=== PATIENT | female | born 1945 | race Caucasian/White ===

== ENCOUNTER 2021-10-06 06:20 | Day surgery (SDC) | payer OTHER, SELFPAY ==
[2021-10-06 06:40] VITALS: BP 119/74; PULSE 73; RESP 16; TEMP 36.2; O2SAT 97
[2021-10-06] MEDS: Tropicam./Phenyleph. (1/2.5%) 5 ML BTL OD ×3 (06:56→07:07)
--- NOTE | 2021-10-06 07:04 | W.ANESPRE ---
General Info Date of Service Date Performed: 10/06/21 Height: 5 ft 4 in Weight: 81 kg Body Mass Index (BMI): 30.6 Surgical Procedure: Operation Date: 10/06/21 07:40 Proposed Procedure Side Surgeon p Cataract Extraction with IOL Implant Right Parag Almanza MD Meds Allergies and Home Medications Allergies Allergy/AdvReac Type Severity Reaction Status Date / Time allergic rhinitis Allergy Intermediate Uncoded 10/06/21 06:44 Home Medication Medication Instructions Recorded ascorbic acid (vitamin C) 500 mg 500 mg PO DAILY 10/04/21 tablet aspirin 81 mg capsule,delayed 81 mg PO DAILY 10/04/21 release atorvastatin 20 mg tablet 20 mg PO DAILY 10/04/21 carbamazepine 200 mg tablet 400 mg PO TID 10/04/21 cetirizine 10 mg tablet 10 mg PO DAILY 10/04/21 cholecalciferol (vitamin D3) 25 1,000 unit PO DAILY 10/04/21 mcg (1,000 unit) capsule (Vitamin D3) coenzyme Q10 100 mg capsule (Co 100 mg PO DAILY 10/04/21 Q-10) lisinopril 10 mg tablet 10 mg PO DAILY 10/04/21 vit C 250 mg-vit E 90 mg-zinc 40 1 cap PO DAILY 10/04/21 mg-copper 1 [id number] capsule (PreserVision AREDS-2) Current Visit Medications: Current Medications Generic Name Dose Route Start Last Admin Trade Name Freq PRN Reason Stop Dose Admin Acetaminophen 1,000 mg 10/06/21 06:00 Acetaminophen 500 Mg Tab PO Q4H PRN PRN Miscellaneous Medication 0 ml 10/06/21 06:00 Prednisolone 1%, Moxifloxacin 0.5%, Nepafenac 0.1% 5ml Btl OD DIRECTED [facility] Miscellaneous Medication 0 ml 10/06/21 06:00 10/06/21 07:02 Tropicam./Phenyleph. (1/2.5%) 5 Ml Btl OD 1 drp DIRECTED DAYDAY Administration Tetracaine HCl 0 ml 10/06/21 06:00 Tetracaine 0.5% 4 Ml Btl OD DIRECTED [facility] PFSH Active Problems Active Problems: Problem Status Onset Code Nuclear sclerotic cataract of right eye H25.11 Medical History Medical History Actinic keratoses Anxiety Arthritis Cataract Chronic rhinitis COPD (chronic obstructive pulmonary disease) Depression Deviated nasal septum Essential (primary) hypertension Eustachian tube disorder H/O bone density study Hepatitis C antibody test negative Herpes zoster pt. 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 Rheumatic fever Sleep pattern disturbance Thrombophlebitis Tobacco use Trigeminal neuralgia Urinary frequency Varicose vein of leg Vitamin D deficiency Wears dentures Surgical History Surgical History History of ear, nose, and throat (ENT) surgery right partial maxillectomy History of tonsillectomy and adenoidectomy Hx of colonoscopy Hx of myringotomy Hx of varicose vein ligation Tobacco Smoking/Tobacco Use Status: Current every day Tobacco Type: cigarettes Smoking cigarettes per day: 2 Alcohol Alcohol Intake: never Substance Use Substance use type: does not use Vital Signs and Lab Results Vital Signs Most Recent Vital Signs in EMR: Most Recent Vital Signs Temp Pulse Resp BP Pulse Ox 36.2 C L 73 16 119/74 97 10/06/21 06:40 10/06/21 06:40 10/06/21 06:40 10/06/21 06:40 10/06/21 06:40 Lab Results Blood Type / Crossmatch: No Data to Display Complete Blood Count: No Data to Display Complete Metabolic Panel: No Data to Display Liver Function Panel: No Data to Display Coagulation Panel: No Data to Display Cardiac Panel: No Data to Display Arterial Blood Gas: No Data to Display Venous Blood Gas: No Data to Display Pancreas Panel: No Data to Display Thyroid Panel: No Data to Display Infectious Disease: No Data to Display Blood Cultures: No Data to Display Toxicology Panel: No Data to Display Anesthesia Assessment and Plan Anesthesia History Personal History: No History of Anesthesia Complications Family History: No Family History of Anesthesia Complications Exercise Tolerance Exercise Tolerance: Metabolic Equivalents>4 Pertinent Negatives Pertinent Negatives: No Symptoms of GERD Cardiac & Pulmonary Exam Cardiac Exam: Normal S1/S2 Heart Sounds Pulmonary Exam: Clear Bilateral Breath Sounds Implantable Cardiac Device Does patient have a Pacemaker or an ICD?: No Airway Exam Known Difficult Airway: No Mallampati Class: 2 Mouth Opening: Normal (> 3cm) Thyromental Distance: Greater than 3 cm Neck Range of Motion: Full ROM Neck Circumference: Normal Teeth Condition: Removable Dentures/Plates Upper, Removable Dentures/Plates Lower and Edentulous ASA Classification ASA Score: ASA 2 Emergency Case?: No NPO Status NPO Status: NPO Clears >2 hours, Solids >8 hours Anesthesia Plan Resuscitation Status: Full Code Anesthesia Technique: MAC Anesthesia Airway Planned: Natural Airway Monitors Used: Standard Monitors
[2021-10-06 07:06] VITALS: BMI 30.6
[2021-10-06] MEDS: Tetracaine 0.5% 4 ML BTL OD (07:29)
[2021-10-06] MEDS: Lidocaine 2% Jelly 6 ML SYR (07:29)
[2021-10-06] MEDS: Povidone-Iodine Ophth 30 ML BTL (07:29)
[2021-10-06] MEDS: Duovisc Viscoelastic System EACH 1 EACH (07:33)
[2021-10-06] MEDS: Balanced Salt Soln.-PLUS 500 ML BAG (07:33)
[2021-10-06 07:55] VITALS: BP 116/72; PULSE 68; RESP 16; TEMP 36.7; O2SAT 96
--- NOTE | 2021-10-06 07:56 | W.PM.DSUDISC ---
Discharge Plan Disposition Patient Disposition: HOME Condition: Good Discharge Details Attending Provider: Parag Almanza Primary Care Provider: Leah Trent Home Meds and New Rx's Prescriptions: No Action atorvastatin 20 mg Tablet 20 mg PO DAILY 0RF cetirizine 10 mg Tablet 10 mg PO DAILY 0RF aspirin 81 mg Capsule,Delayed Release(Dr/Ec) 81 mg PO DAILY 0RF carbamazepine 200 mg Tablet 400 mg PO TID 0RF ascorbic acid (vitamin C) 500 mg Tablet 500 mg PO DAILY 0RF lisinopril 10 mg Tablet 10 mg PO DAILY 0RF cholecalciferol (vitamin D3) [Vitamin D3] 25 mcg (1,000 unit) Capsule 1,000 unit PO DAILY 0RF coenzyme Q10 [Co Q-10] 100 mg Capsule 100 mg PO DAILY 0RF PreserVision AREDS-2 250-90-40-1 mg Capsule 1 cap PO DAILY 0RF Discharge Instructions Stand Alone Forms: Post-op Topical Cataract, Markel Ganey (DSU) Discharge Orders Discharge Orders: Discharge Order (Routine); Ordered 10/06/21 Ordered By: Parag Almanza DS: Diagnosis Discharge Diagnosis (1) Nuclear sclerotic cataract of right eye: Status: Resolved
--- NOTE | 2021-10-06 07:57 | ROE_ITS ---
Date of service: 10/06/21 Time of Service: 07:57 Operative Note Operative Note DATE OF PROCEDURE: 10/06/21 PRE-OP DIAGNOSIS: Nuclear cataract, right eye POST-OP DIAGNOSIS: same PROCEDURE: Cataract extraction using phacoemulsification with intraocular lens implant, right eye SURGEON: Parag Almanza ANESTHESIA TYPE: Local By Surgeon and MAC Refer to Anesthesia Record ESTIMATED BLOOD LOSS: 0 PATHOLOGY: none sent COMPLICATIONS: None Patient was transported to: same day Patient's condition: stable Implants: Mark & Mark/JIMENA Tecnis [id number] Indications: Progressive visual loss due to cataract, right eye Procedure Description: CATARACT SURGERY OPERATIVE REPORT PREOPERATIVE DIAGNOSIS: 1. Nuclear cataract, right eye POSTOPERATIVE DIAGNOSIS: Same OPERATION: 1. Cataract extraction using phacoemulsification with posterior chamber intraocular lens implant, right eye. IOL: IOL Manager Physical/Model: Mark & Mark / JIMENA Tecnis [id number] IOL Power: + 26.5 diopters IOL Serial Number: [id number] Optic Diameter: 6.0mm Haptic/Overall Diameter: 13.0mm PHACO INFO: [employer] Vision System with OZil and Active Fluidics Cumulative Dispersed Energy (CDE): 13.02 seconds SURGEON: Parag Almanza MD, ELSA ANESTHESIA: Monitored Anesthesia Care (MAC), with local sub-tenon's anesthetic infiltration COMPLICATIONS: None SPECIMENS: None INDICATIONS FOR PROCEDURE: The patient is a 76-year-old lady with history of diminished visual acuity in her right eye secondary to the development of nuclear cataract. She is significantly symptomatic that she desires cataract surgery and attempt to improve and maximize her vision. PROCEDURE: The correct surgical eye was identified and marked as the right eye and the pupil was dilated in the preoperative area using mydriatics and cycloplegics. The dilated pupil size was 7.0 mm. Oral sedation was administered in the form of an Imprimis MKO Melt (midazolam 3mg/ketamine 25mg/ondansetron 2mg). The patient was brought to the operating room where cardiopulmonary monitoring was instituted and surgical time-out was performed, confirming the correct operative eye and IOL power. Topical anesthesia was administered and ophthalmic povidone-iodine 5% was instilled into the conjunctival fornices. Lidocaine gel was applied to the cornea and the nallely-ocular area was prepped with Betadine 10% solution and draped in the usual sterile fashion for intraocular surgery, including an aperture drape. A Tegaderm transparent film dressing was cut in half and used to cover the lashes and lid margins. Care was taken to sequester the lashes and lid margins under the Tegaderm dressing. A lid speculum was placed between the lids of the operative eye and the [employer] operating microscope was maneuvered into position. Faiza scissors were then used to make a conjunctival buttonhole approximately 6mm posterior to the limbus in the inferonasal quadrant. Blunt dissection was carried out to expose bare sclera, and a blunt-tipped sub-tenon?s anesthesia cannula was introduced and passed posteriorly along the globe where non- preserved plain lidocaine was injected into posterior sub-Tenon?s space. A sideport knife was used to make a paracentesis port inferotemporally. Intraocular phenylephrine/lidocaine was injected into the anterior chamber. The anterior chamber was filled with viscoelastic. A 2.4mm keratome knife was used to create a half-thickness groove at the limbus and then to construct a three- plane near-clear corneal tunnel extending 2.0mm into clear cornea superiortemporally. A flap was raised on the anterior capsule and capsulorhexis forceps were used to complete a continuous curvilinear capsulorhexis of 5.0 mm. Balanced salt solution was then used to perform cortical cleaving hydrodissection and nuclear hydrodelineation until the lens could be freely rotated within the capsular bag. The lens nucleus was then disassembled and removed within the capsular bag and iris plane using phacoemulsification. Residual cortical material was removed using the I/A handpiece. The posterior capsule was carefully polished to remove as much residual lens epithelial cells as safely possible. The capsular bag was then inflated and the anterior chamber deepened with viscoelastic. The lens implant described above was inserted into the capsular bag using the JIMENA [place] Injector. A Kuglen hook was used to dial the IOL into position. Residual viscoelastic was then removed first from posterior to the IOL, then from the anterior chamber using the I/A handpiece. The lens implant was noted to center nicely within the capsular bag. The incisions were stromally hydrated, and the anterior chamber was reformed using BSS. Then 0.5cc of moxifloxacin 1.0mg/ml were injected into the capsular bag and anterior chamber. The incisions were checked with a Weck spear and found to be secure. Several drops of ophthalmic povidone-iodine 5% were then applied to the eye followed by two drops of Imprimis combination prednisolone/moxifloxacin/nepafenac solution. The drapes were removed and a clear plastic protective eye shield was placed over the eye. The patient was then returned to Same Day Surgery in stable condition.
--- NOTE | 2021-10-06 08:17 | W.ANESPOSTOP ---
Postoperative Evaluation Date, Time and Location Date Performed: 10/06/21 Time Performed: 08:00 Patient Location: Day Surgery Unit Vital Signs Most Recent Imported Vital Signs: Most Recent Vital Signs Temp Pulse Resp BP Pulse Ox 36.7 C 68 16 116/72 96 10/06/21 07:55 10/06/21 07:55 10/06/21 07:55 10/06/21 07:55 10/06/21 07:55 Pain Score Most Recent Pain Score: Most Recent Pain Score Pain Level 0 10/06/21 07:55 Assessment Mental Status: Awake (Alert & Oriented to Patient Baseline) Airway and Respiratory Function: Patent airway with normal (patient baseline) respiratory exam Cardiovascular Function: Hemodynamically Stable Hydration Status: Adequately Hydrated Nausea & Vomiting: No Nausea or Vomiting Pain: Pt. Denies Any Pain Peripheral Nerve Block: Patient did not receive a nerve block
[2021-10-06 08:25] VITALS: BP 115/67; PULSE 67; RESP 16; TEMP 36.7; O2SAT 95
== END 2021-10-06 08:30 | disposition home or self-care (01) ==
PROVIDERS: PCP Physician Assistant; Visit Provider Ophthalmology
PROC: (CPT 66984; principal; 2021-10-06 07:30)
DX: H25.11 Age-related nuclear cataract, right eye (principal); J44.9 Chronic obstructive pulmonary disease, unspecified; E78.5 Hyperlipidemia, unspecified
CPT/HCPCS: 66984; V2632

== ENCOUNTER 2021-10-27 08:10 | Day surgery (SDC) | payer OTHER, SELFPAY ==
--- NOTE | 2021-10-27 06:47 | ROE_ITS ---
Date of service: 10/27/21 Time of Service: 10:21 Operative Note Operative Note DATE OF PROCEDURE: 10/27/21 PRE-OP DIAGNOSIS: Nuclear cataract, left eye POST-OP DIAGNOSIS: same PROCEDURE: Cataract extraction using phacoemulsification with intraocular lens implant, left eye SURGEON: Parag Almanza ANESTHESIA TYPE: Local By Surgeon and MAC Refer to Anesthesia Record PATHOLOGY: none sent COMPLICATIONS: None Patient was transported to: same day Patient's condition: stable Implants: Mark and Mark / [employer] Tecnis [id number] Indications: Progressive decreased vision due to cataract, left eye Procedure Description: CATARACT SURGERY OPERATIVE REPORT PREOPERATIVE DIAGNOSIS: 1. Nuclear cataract, left eye POSTOPERATIVE DIAGNOSIS: Same OPERATION: 1. Cataract extraction using phacoemulsification with posterior chamber intraocular lens implant, left eye. IOL: IOL Trial Attorney/Model: Mark & Mark / JIMNEA Tecnis [id number] IOL Power: + 26.5 diopters IOL Serial Number: [id number] Optic Diameter: 6.0 mm Haptic/Overall Diameter: 13.0 mm PHACO INFO: [employer] Vision System with OZil and Active Fluidics Cumulative Dispersed Energy (CDE): 14.66 seconds SURGEON: Parag Almanza MD, ELSA ANESTHESIA: Monitored A [facility] (MAC), with local sub-tenon's anesthetic infiltration COMPLICATIONS: None SPECIMENS: None INDICATIONS FOR PROCEDURE: The patient is a 76-year-old lady with history of diminished visual acuity in both eyes secondary to the development of bilateral nuclear cataract. She has already undergone cataract surgery in the right eye and is doing well postoperatively. She now presents for cataract surgery in the left eye. PROCEDURE: The correct surgical eye was identified and marked as the left eye and the pupil was dilated in the preoperative area using mydriatics and cycloplegics. The dilated pupil size was 6.0mm. Oral sedation was administered in the form of an Imprimis MKO Melt (midazolam 3mg/ketamine 25mg/ondansetron 2mg). The patient was brought to the operating room where cardiopulmonary monitoring was instituted and surgical time-out was performed, confirming the correct operative eye and IOL power. Topical anesthesia was administered and ophthalmic povidone-iodine 5% was instilled into the conjunctival fornices. Lidocaine gel was applied to the cornea and the nallely-ocular area was prepped with Betadine 10% solution and draped in the usual sterile fashion for intraocular surgery, including an aperture drape. A Tegaderm transparent film dressing was cut in half and used to cover the lashes and lid margins. Care was taken to sequester the lashes and lid margins under the Tegaderm dressing. A lid speculum was placed between the lids of the operative eye and the [employer] operating microscope was maneuvered into position. Faiza scissors were then used to make a conjunctival buttonhole approximately 6mm posterior to the limbus in the inferonasal quadrant. Blunt dissection was carried out to expose bare sclera, and a blunt-tipped sub-tenon?s anesthesia cannula was introduced and passed posteriorly along the globe where non- preserved plain lidocaine was injected into posterior sub-Tenon?s space. A sideport knife was used to make a paracentesis port superiorly/superiortemporally. Intraocular phenylephrine/lidocaine was injected int the anterior chamber.. The anterior chamber was filled with viscoelastic. A 2.4mm keratome knife was used to create a half-thickness groove at the limbus and then to construct a three-plane near-clear corneal tunnel extending 2.0mm into clear cornea at the 3:00 position. A flap was raised on the anterior capsule and capsulorhexis forceps were used to complete a continuous curvilinear capsulorhexis of 5.0 mm. Balanced salt solution was then used to perform cortical cleaving hydrodissection and nuclear hydrodelineation until the lens could be freely rotated within the capsular bag. The lens nucleus was then disassembled and removed within the capsular bag and iris plane using phacoemulsification. Residual cortical material was removed using the 45-degree angled silicone I/A tip with 0.3mm port. The posterior capsule was carefully polished to remove as much residual lens epithelial cells as safely possible. The capsular bag was then inflated and the anterior chamber deepened with viscoelastic. The lens implant described above was inserted into the capsular bag using the JIMENA [place] Injector. A Kuglen hook was used to dial the IOL into position. Residual viscoelastic was then removed first from posterior to the IOL, then from the anterior chamber using the I/A handpiece. The lens implant was noted to center nicely within the capsular bag. The incisions were stromally hydrated, and the anterior chamber was reformed using BSS. Then 0.5cc of moxifloxacin 1.0mg/ml were injected into the capsular bag and anterior chamber. The incisions were checked with a Weck spear and found to be secure. Several drops of ophthalmic povidone-iodine 5% were then applied to the eye followed by two drops of Imprimis combination prednisolone/moxifloxacin/nepafenac solution. The drapes were removed and a clear plastic protective eye shield was placed ov er the eye. The patient was then returned to Same Day Surgery in stable condition.
--- NOTE | 2021-10-27 06:47 | W.PREOPHP ---
Assessment and Plan Assessment and plan (1) Nuclear sclerotic cataract of right eye: Status: Resolved Assessment and plan: Assessment: Visually significant cataract of the right eye. Plan: Cataract extraction with lens implantation of the left eye, followed by cataract surgery with lens implantation of the right eye 2 weeks later. (2) Nuclear sclerotic cataract of left eye: Status: Acute Assessment and plan: Assessment: Visually significant cataract of the left eye. Plan: Cataract extraction with lens implantation of the left eye, followed by cataract surgery with lens implantation of the right eye 2 weeks later. History of Present Illness History of Present Illness Chief Complaint: Progressive decreased vision, both eyes Narrative: The patient is a 76-year-old lady with history of progressive decreased vision in both eyes over the past 3 years. Review of Systems All systems reviewed & are unremarkable except as noted in HPI and below PFSH All Active Problems Nuclear sclerotic cataract of left eye (Acute) Medical History Actinic keratoses Anxiety Arthritis Cataract Chronic rhinitis COPD (chronic obstructive pulmonary disease) Depression Deviated nasal septum Essential (primary) hypertension Eustachian tube disorder H/O bone density study Hepatitis C antibody test negative Herpes zoster pt. 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 Rheumatic fever Sleep pattern disturbance Thrombophlebitis Tobacco use Trigeminal neuralgia Urinary frequency Varicose vein of leg Vitamin D deficiency Wears dentures Surgical History History of cataract surgery History of ear, nose, and throat (ENT) surgery right partial maxillectomy History of tonsillectomy and adenoidectomy Hx of colonoscopy Hx of myringotomy Hx of varicose vein ligation Social History Smoking/Tobacco Use Status: Current every day Tobacco Type: cigarettes Smoking risk assessment performed?: Yes Alcohol Intake: never Substance use type: does not use Do you feel safe at home: Yes Do you feel safe in your relationship?: Yes Meds Allergies and Home Medications Allergies Allergy/AdvReac Type Severity Reaction Status Date / Time allergic rhinitis Allergy Intermediate Uncoded 10/27/21 08:34 Home Medications Medication Instructions Recorded Confirmed Type ascorbic acid (vitamin C) 500 mg 500 mg PO DAILY 10/04/21 10/27/21 History tablet aspirin 81 mg capsule,delayed 81 mg PO DAILY 10/04/21 10/27/21 History release atorvastatin 20 mg tablet 20 mg PO DAILY 10/04/21 10/27/21 History carbamazepine 200 mg tablet 400 mg PO TID 10/04/21 10/27/21 History cetirizine 10 mg tablet 10 mg PO DAILY 10/04/21 10/27/21 History cholecalciferol (vitamin D3) 25 1,000 unit PO DAILY 10/04/21 10/27/21 History mcg (1,000 unit) capsule (Vitamin D3) coenzyme Q10 100 mg capsule (Co 100 mg PO DAILY 10/04/21 10/27/21 History Q-10) lisinopril 10 mg tablet 10 mg PO DAILY 10/04/21 10/27/21 History vit C 250 mg-vit E 90 mg-zinc 40 1 cap PO DAILY 10/04/21 10/27/21 History mg-copper 1 [id number] capsule (PreserVision AREDS-2) Exam Eyes Other: Corrected visual acuity is counting fingers OD, 20/80 OS. Intraocular pressure 17 OD, 18 OS. Extraocular Aria is normal. Slit-lamp examination reveals very narrow anterior chamber angles, with shallow anterior chambers. Disc cupping is 0.15 OU. The retinal vasculature is normal. Soft drusen are noted in both maculas. Peripheral retina and vitreous is normal. Resp Auscultation: clear to auscultation bilaterally Cardio Rate: regular rate Rhythm: regular rhythm
[2021-10-27 08:27] VITALS: BP 162/81; PULSE 69; RESP 18; TEMP 36.5; O2SAT 98
[2021-10-27] MEDS: Tropicam./Phenyleph. (1/2.5%) 5 ML BTL OS ×3 (08:39→08:50)
--- NOTE | 2021-10-27 09:09 | W.ANESPRE ---
General Info Date of Service Date Performed: 10/27/21 Height: 5 ft 4 in Weight: 81.9 kg Body Mass Index (BMI): 30.9 Surgical Procedure: Operation Date: 10/27/21 09:55 Proposed Procedure Side Surgeon p Cataract Extraction with IOL Implant Left Parag Almanza MD Meds Allergies and Home Medications Allergies Allergy/AdvReac Type Severity Reaction Status Date / Time allergic rhinitis Allergy Intermediate Uncoded 10/27/21 08:34 Home Medication Medication Instructions Recorded ascorbic acid (vitamin C) 500 mg 500 mg PO DAILY 10/04/21 tablet aspirin 81 mg capsule,delayed 81 mg PO DAILY 10/04/21 release atorvastatin 20 mg tablet 20 mg PO DAILY 10/04/21 carbamazepine 200 mg tablet 400 mg PO TID 10/04/21 cetirizine 10 mg tablet 10 mg PO DAILY 10/04/21 cholecalciferol (vitamin D3) 25 1,000 unit PO DAILY 10/04/21 mcg (1,000 unit) capsule (Vitamin D3) coenzyme Q10 100 mg capsule (Co 100 mg PO DAILY 10/04/21 Q-10) lisinopril 10 mg tablet 10 mg PO DAILY 10/04/21 vit C 250 mg-vit E 90 mg-zinc 40 1 cap PO DAILY 10/04/21 mg-copper 1 [id number] capsule (PreserVision AREDS-2) Current Visit Medications: Current Medications Generic Name Dose Route Start Last Admin Trade Name Freq PRN Reason Stop Dose Admin Acetaminophen 1,000 mg 10/27/21 06:00 Acetaminophen 500 Mg Tab PO Q4H PRN PRN Miscellaneous Medication 0 ml 10/27/21 06:00 Prednisolone 1%, Moxifloxacin 0.5%, Nepafenac 0.1% 5ml Btl OS DIRECTED DAYDAY Miscellaneous Medication 0 ml 10/27/21 06:00 10/27/21 08:50 Tropicam./Phenyleph. (1/2.5%) 5 Ml Btl OS 1 drp DIRECTED DAYDAY Administration Tetracaine HCl 0 ml 10/27/21 06:00 Tetracaine 0.5% 4 Ml Btl OS DIRECTED DAYDAY PFSH Active Problems Active Problems: Problem Status Onset Code Nuclear sclerotic cataract of right eye H25.11 Nuclear sclerotic cataract of left eye H25.12 Medical History Medical History Actinic keratoses Anxiety Arthritis Cataract Chronic rhinitis COPD (chronic obstructive pulmonary disease) Depression Deviated nasal septum Essential (primary) hypertension Eustachian tube disorder H/O bone density study Hepatitis C antibody test negative Herpes zoster pt. 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 Rheumatic fever Sleep pattern disturbance Thrombophlebitis Tobacco use Trigeminal neuralgia Urinary frequency Varicose vein of leg Vitamin D deficiency Wears dentures Surgical History Surgical History History of cataract surgery History of ear, nose, and throat (ENT) surgery right partial maxillectomy History of tonsillectomy and adenoidectomy Hx of colonoscopy Hx of myringotomy Hx of varicose vein ligation Tobacco Smoking/Tobacco Use Status: Current every day Tobacco Type: cigarettes Smoking cigarettes per day: 2 Alcohol Alcohol Intake: never Substance Use Substance use type: does not use Vital Signs and Lab Results Vital Signs Most Recent Vital Signs in EMR: Most Recent Vital Signs Temp Pulse Resp BP Pulse Ox 36.5 C 69 18 162/81 H 98 10/27/21 08:27 10/27/21 08:27 10/27/21 08:27 10/27/21 08:27 10/27/21 08:27 Lab Results Blood Type / Crossmatch: No Data to Display Complete Blood Count: No Data to Display Complete Metabolic Panel: No Data to Display Liver Function Panel: No Data to Display Coagulation Panel: No Data to Display Cardiac Panel: No Data to Display Arterial Blood Gas: No Data to Display Venous Blood Gas: No Data to Display Pancreas Panel: No Data to Display Thyroid Panel: No Data to Display Infectious Disease: No Data to Display Blood Cultures: No Data to Display Toxicology Panel: No Data to Display Anesthesia Assessment and Plan Anesthesia History Personal History: No History of Anesthesia Complications Family History: No Family History of Anesthesia Complications Exercise Tolerance Exercise Tolerance: Metabolic Equivalents>4 Cardiac & Pulmonary Exam Cardiac Exam: Normal S1/S2 Heart Sounds Pulmonary Exam: Clear Bilateral Breath Sounds Implantable Cardiac Device Does patient have a Pacemaker or an ICD?: No Airway Exam Known Difficult Airway: No Mallampati Class: 2 Mouth Opening: Normal (> 3cm) Thyromental Distance: Greater than 3 cm Neck Range of Motion: Full ROM Neck Circumference: Normal Teeth Condition: Removable Dentures/Plates Upper, Removable Dentures/Plates Lower and Edentulous ASA Classification ASA Score: ASA 2 Emergency Case?: No NPO Status NPO Status: NPO Clears >2 hours, Solids >8 hours Anesthesia Plan Resuscitation Status: Full Code Anesthesia Technique: MAC Anesthesia Airway Planned: Natural Airway Monitors Used: Standard Monitors
[2021-10-27 09:41] VITALS: BMI 30.9
[2021-10-27] MEDS: Tetracaine 0.5% 4 ML BTL OS (10:03)
[2021-10-27] MEDS: Balanced Salt Soln.-PLUS 500 ML BAG (10:03)
[2021-10-27] MEDS: Duovisc Viscoelastic System EACH 1 EACH (10:05)
[2021-10-27] MEDS: Lidocaine 2% Jelly 6 ML SYR (10:06)
[2021-10-27] MEDS: Povidone-Iodine Ophth 30 ML BTL (10:07)
[2021-10-27 10:20] VITALS: BP 143/86; PULSE 66; RESP 17; TEMP 36.1; O2SAT 98
--- NOTE | 2021-10-27 10:20 | W.PM.DSUDISC ---
Discharge Plan Disposition Patient Disposition: HOME Condition: Good Discharge Details Attending Provider: Parag Almanza Primary Care Provider: Leah Trent Home Meds and New Rx's Prescriptions: No Action atorvastatin 20 mg Tablet 20 mg PO DAILY 0RF cetirizine 10 mg Tablet 10 mg PO DAILY 0RF aspirin 81 mg Capsule,Delayed Release(Dr/Ec) 81 mg PO DAILY 0RF carbamazepine 200 mg Tablet 400 mg PO TID 0RF ascorbic acid (vitamin C) 500 mg Tablet 500 mg PO DAILY 0RF lisinopril 10 mg Tablet 10 mg PO DAILY 0RF cholecalciferol (vitamin D3) [Vitamin D3] 25 mcg (1,000 unit) Capsule 1,000 unit PO DAILY 0RF coenzyme Q10 [Co Q-10] 100 mg Capsule 100 mg PO DAILY 0RF PreserVision AREDS-2 250-90-40-1 mg Capsule 1 cap PO DAILY 0RF Discharge Instructions Stand Alone Forms: Post-op Topical Cataract, Press Ganey (DSU) Discharge Orders Discharge Orders: Discharge Order (Routine); Ordered 10/27/21 Ordered By: Parag Almanza DS: Diagnosis Discharge Diagnosis (1) Nuclear sclerotic cataract of left eye: Status: Resolved
--- NOTE | 2021-10-27 10:29 | W.ANESPOSTOP ---
Postoperative Evaluation Date, Time and Location Date Performed: 10/27/21 Time Performed: :29 Patient Location: Day [facility] Unit Vital Signs Most Recent Imported Vital Signs: Most Recent Vital Signs Temp Pulse Resp BP Pulse Ox 36.1 C L 66 17 143/86 H 98 10/27/21 10:20 10/27/21 10:20 10/27/21 10:20 10/27/21 10:20 10/27/21 10:20 Pain Score Most Recent Pain Score: Most Recent Pain Score Pain Level 0 10/27/21 10:20 Assessment Mental Status: Awake (Alert & Oriented to Patient Baseline) Airway and Respiratory Function: Patent airway with normal (patient baseline) respiratory exam Cardiovascular Function: Hemodynamically Stable Hydration Status: Adequately Hydrated Nausea & Vomiting: No Nausea or Vomiting Pain: Pt. Denies Any Pain Peripheral Nerve Block: Patient did not receive a nerve block
[2021-10-27 10:50] VITALS: BP 138/64; PULSE 65; RESP 16; TEMP 35.8; O2SAT 97
== END 2021-10-27 10:50 | disposition home or self-care (01) ==
PROVIDERS: PCP Physician Assistant; Visit Provider Ophthalmology
PROC: (CPT 66984; principal; 2021-10-27 09:45)
DX: H25.12 Age-related nuclear cataract, left eye (principal); J44.9 Chronic obstructive pulmonary disease, unspecified; E78.5 Hyperlipidemia, unspecified; F17.210 Nicotine dependence, cigarettes, uncomplicated
CPT/HCPCS: 66984; V2632